=== PATIENT | male | born 1940 | race Caucasian/White ===

== ENCOUNTER 2017-10-28 06:44 | Day surgery (SDC) | payer OTHER, MEDICARE ==
[2017-10-27 10:41] VITALS: BMI 32.1
[2017-10-28 07:30] LABS: INR 1.12 (0.82-1.09); PROTHROMBIN TIME (PATIENT) 12.6 SEC (9.98-11.88)
[2017-10-28] MEDS ORDERED: MIDAZOLAM HCL 2 MG/2 ML SINGLE DOSE VIAL ONE (09:18)
[2017-10-28] MEDS ORDERED: BACITRACIN 15 GM TUBE TOPICAL OINTMENT ONE ×2 (09:37→14:13)
[2017-10-28] MEDS ORDERED: ceFAZolin SODIUM 1 GM VIAL ONE (09:38)
[2017-10-28] MEDS ORDERED: ceFAZolin SODIUM 1 GM VIAL IVPB ONE (09:42)
[2017-10-28] MEDS ORDERED: BACITRACIN 15 GM TUBE TOPICAL OINTMENT TP ONE (10:10)
[2017-10-28] MEDS ORDERED: oxyCODONE HCL 5 MG TABLET PO PRN (10:25)
--- NOTE | 2017-10-28 10:25 | OP ---
Operative Note - Note: Operative Date: 10/28/17 Pre-Operative Diagnosis: phimosis/balanitis Operation: circumcision Findings: phimotic,adherent foreskin Post-Operative Diagnosis: Same as Pre-op Surgeon: Norman Black Anesthesia: General, Spinal Specimens Removed: foreskin Estimated Blood Loss (mls): 2 Operative Report Dictated: Yes
--- NOTE | 2017-10-28 10:50 | OP ---
DATE OF OPERATION: 10/28/2017 PREOPERATIVE DIAGNOSES: Phimosis and balanitis. POSTOPERATIVE DIAGNOSES: Phimosis and balanitis. PROCEDURE: Circumcision. SURGEON: Norman Black MD INDICATION: Patient is a 77-year-old male with densely adherent, phimotic foreskin, cannot be retracted, who after reviewing treatment options, elected to undergo a circumcision, understood the risks of bleeding, infection, scar tissue, , potential need for additional procedures due to lack of appropriate healing. DESCRIPTION OF PROCEDURE: After informed consent obtained, patient was taken to the OR and placed supine on the operating table. He was given 2 g of Ancef and spinal anesthetic. The penis was then prepped and draped in standard surgical fashion. cannot be retracted. A dorsal slit had to be performed first in order to retract the penis, and then, a sleeve of phimotic foreskin was excised circumferentially and sent to Pathology for analysis. The foreskin was densely adherent to the glans, and this was detached as best as possible manually with a moist 4 x 4. At this point then, the distal skirt of foreskin at the armas was sewn back to the proximal foreskin tissue circumferentially until it was completely reapproximated using 3-0 chromic sutures. Bacitracin and 4 x 4 and Coban were then placed for a dry sterile dressing. Patient then awoken from anesthesia and transferred to recovery room in stable condition. There were no complications. Estimated blood loss was 2 mL. Ken [id number]
[2017-10-28] MEDS ORDERED: ONDANSETRON 4 MG/2 ML VIAL IVPUSH PRN (11:11)
[2017-10-28] MEDS ORDERED: LACTATED RINGERS SOLUTION 1,000 ML IV SCH (11:15)
[2017-10-28] MEDS ORDERED: oxyCODONE HCL 5 MG TABLET ONE (15:26)
--- NOTE | 2017-10-28 18:45 | PN ---
Teaching Attending Note Name of Resident: Terry Mendoza ATTENDING PHYSICIAN STATEMENT I saw and evaluated the patient. I reviewed the resident's note and discussed the case with the resident. I agree with the resident's findings and plan as documented with exceptions mentioned below. SUBJECTIVE: 77 yom with PMhx of afib on coumadin, CKD stage III, s/p PPM, COPD, PVD, ?DVT ( per charts but patient denies), GIB, HLD, HTN, Mitral stenosis/TR, SILVERIO admitted for elective cirmcucsion for phimosis, inability to retract foreskin. s/p surgery, had spinal anesthesia, had urban placement post op and plan for overnight admission to monitor for retention and hematuria. patient currently denies any pain, dyspnea, fevers, chills, nausea, vomiting, abdominal or urinary symptoms. 12 point ROS done, neg for exertional chest, dsypnea, PND, orthopnea, leg swelling, or concerns otherwise. Has been doing well before surgery. Was seen by his cardiology preoperatively and placed on lovenox bridging pre- operatively and coumadin was held. OBJECTIVE: Vital Signs Period Temp Pulse Resp BP Sys/Person Pulse Ox Last 24 Hr 97.7 F-98.2 F 68-83 15-18 102-131/57-76 95-98 Intake & Output 10/25/17 10/26/17 10/27/17 10/28/17 23:59 23:59 23:59 23:59 Intake Total 800 Output Total 1002 Balance -202 Weight 250 lb GENERAL: Awake, alert, and fully oriented, in no acute distress. HEAD: Normal with no signs of trauma. EYES: Pupils equal, round and reactive to light, extraocular movements intact, sclera anicteric, conjunctiva clear. No lid lag. EARS, NOSE, THROAT: Ears normal, nares patent, oropharynx clear without exudates. Moist mucous membranes. NECK: Normal range of motion, supple without lymphadenopathy, JVD, or masses. LUNGS: Breath sounds equal, clear to auscultation bilaterally. No wheezes, and no crackles. No accessory muscle use. HEART: S1S2 regular ABDOMEN: Soft, obese, nontender, not distended, normoactive bowel sounds, no guarding, no rebound, no masses. MUSCULOSKELETAL: Normal range of motion at all joints. No bony deformities or tenderness. No CVA tenderness. UPPER EXTREMITIES: 2+ pulses, warm, well-perfused. No cyanosis. No clubbing. No peripheral edema. LOWER EXTREMITIES: RLE skin hyperpigmentation with 1+ pedal non pitting edema ( chronic per patient) bilateral DP pulses present, well perfused NEUROLOGICAL: AAOx3, facial symmetry, moves all extremities freely, PSYCHIATRIC: Cooperative. Good eye contact. Appropriate mood and affect. SKIN: Warm, dry, normal turgor, no rashes or lesions noted, normal capillary refill. Home Medication List Medication Instructions Recorded Confirmed Type Atorvastatin Ca [Lipitor] 40 mg PO HS 10/27/17 10/28/17 History Enoxaparin Sodium [Lovenox] 100 mg SQ BID 10/27/17 10/28/17 History Finasteride 5 mg PO DAILY 10/27/17 10/28/17 History Liraglutide [Victoza -] 1.8 mg SQ DAILY@0700 10/27/17 10/28/17 History Nitrofurantoin Monohyd/M-Cryst 100 mg PO BID 10/27/17 10/28/17 History [Nitrofurantoin [place]-Mcr 100 mg] Olmesartan Medoxomil [Benicar (Nf)] 40 mg PO DAILY 10/27/17 10/28/17 History Omeprazole 40 mg PO DAILY 10/27/17 10/28/17 History Sitagliptin Phosphate [Januvia] 50 mg PO DAILY 10/27/17 10/28/17 History Torsemide 60 mg PO DAILY 10/27/17 10/28/17 History Warfarin Sodium [Coumadin] 5 mg PO ASDIR 10/27/17 10/28/17 History Warfarin Sodium [Coumadin] 10 mg PO ASDIR 10/27/17 10/28/17 History Active Medications Generic Name Dose Route Start Last Admin Trade Name Freq PRN Reason Stop Dose Admin Fentanyl 25 mcg 10/28/17 11:11 Sublimaze Injection - IVPUSH [id number] PRN PAIN-PACU ORDER X 4 DOSES ONLY Ondansetron HCl 4 mg 10/28/17 11:11 Zofran Injection IVPUSH Q6H PRN NAUSEA AND/OR VOMITING Oxycodone HCl 5 mg 10/28/17 10:25 Roxicodone - PO Q4H PRN PAIN-PACU Laboratory Results - last 24 hr 10/28/17 10/28/1710/28/18 07:03 07:03 07:48 PT with INR 12.60 H INR 1.12 Potassium 5.0 POC Glucometer 105 ASSESSMENT AND PLAN: 77 yom with PMHx of Afib on coumadin, HTN, HLD, s/p PPM, MS/TR, low normal EF, Anemia, BPH, COPD, CKD stage III, admitted for elective cirmcision, post operatively with urinary retention requring urban placement and admit to observation overnight for monitoring for hematuria. -Phimosis s/p circumcision -Afib on coumadin -S/p PPM -HTN -HLD -MS/TR, low normal EF -Anemia -BPH -CKD stage III -COPD Plan: discussed with Dr. Black, plan for strict bed rest overnight, urban, voiding trial in AM. D/c in 24 hours if no new concerns. As discussed, hold anti-coagulation ( coumadin or lovenox) tonight. resume diet. D/c IVF. Check CBC, Chem-7. resume ARB accordingly. (h/o CKD stage III and K 5 on admission). ISS, diabetic diet DVTPPX with SCDs Continue home PPI. Admit to observation overnight, d/c planning in 24 hours with no concerns. Plan discussed with patient in detail, all questions answered. Total admit time spent 45 min.
[2017-10-28] MEDS ORDERED: ACETAMINOPHEN 325 MG TABLET (FP) PO PRN ×2 (18:46→18:47)
--- NOTE | 2017-10-28 19:17 | HP ---
CC: I just had surgery PCP: Neal Simmons MD Mechanical Maintenance Instructor: Elio Live MD Urologist: Norman Black MD HPI: 77 yo M h/o COPD, a-fib on coumadin, systolic CHF, CAD s/p pacemaker, valvular disease s/p mitral valve replacement, and NIDDM underwent circumcision today in ambulatory surgery. Patient stated that his penile foreskin started to close after a tick bite a few years ago. He's been unable to pull the foreskin back which prompted him to see Dr. Black. Patient is s/p circumcision with spinal anesthesia post op day 0 with 2 ml of blood loss during procedure. He has a urban catheter in place. Denies fever, chills, chest pain, shortness of breath, headache, weakness, nausea or vomiting. PMH: kidney stone, COPD, a-fib, CHF, CAD s/p pacemaker, mitral valve replacement , NIDDM PSH: Valve repair and replacement, ? perf colon-cauterized Social History: former smoker; current alcohol user (2 shots/day) Family History: Non-contributory Allergy: NKDA Home Meds: Atorvastatin Ca [Lipitor] 40 mg PO HS 10/27/17 Enoxaparin Sodium [Lovenox] 100 mg SQ BID 10/27/17 Finasteride 5 mg PO DAILY 10/27/17 Liraglutide [Victoza -] 1.8 mg SQ DAILY@0700 10/27/17 Nitrofurantoin Monohyd/M-Cryst [Nitrofurantoin Moca-Mcr 100 mg] 100 mg PO BID Olmesartan Medoxomil [Benicar (Nf)] 40 mg PO DAILY 10/27/17 Omeprazole 40 mg PO DAILY 10/27/17 Sitagliptin Phosphate [Januvia] 50 mg PO DAILY 10/27/17 Torsemide 60 mg PO DAILY 10/27/17 Warfarin Sodium [Coumadin] 5 mg PO ASDIR 10/27/17 Warfarin Sodium [Coumadin] 10 mg PO ASDIR 10/27/17 ROS: Constitutional: no fever or loss of appetite, no weakness or weight change HEENT: No headache, nasal congestion, sore throat, ear pain, vision change Skin: No rash or lesion Cardiovascular: No chest pain Pulmonary: No dyspne, no non-productive cough or clear sputum Endocrine: No polyuria, polydipsia, skin /hair changes, heat/cold intolerance. GI: No active abd pain, nausea or vomiting : No frequency, urgency, dysuria, or hematuria. MSK: No joint or muscle pain Psychology: No depression, anxiety, or insomnia. Physical Examination Last Vital Signs Temp Pulse Resp BP Pulse Ox 97.6 F 83 18 115/60 98 10/28/17 18:40 03 18:40 03 18:40 10/28/17 18:40 10/28/17 18:40 General: not any pulmonary or cardiac distress, AAO x 3. appropriate to stated age. Eyes: b/l cataract with artificial lens Neck: Supple with no LAD or masses, no bruit Lymph Nodes: No cervical or inguinal LAD. Cardiovascular: RRR, S1 and S2 normal, no m/r/r Lungs: CTAB Abdomen: Obese, soft, non-distended, normoactive bowel sounds. No tenderness even upon deep palpation, no guarding/rebound Extremeties: b/l LE chronic venous stasis with +2 pitting edema; b/l peripheral pulses present; diffuse, non-purulent erythema with no-healing spotty wounds in LLE, compression stocking in place : urban catheter in place, clear urine (300cc) CMP Potassium 5.0 mmol/L (3.5-5.1) 10/28/17 07:03 A/P: 77 yo M admitted to med-surg observation s/p circumcision under spinal anesthesia. Urinary retention - s/p circumcision with spinal anesthesia post-op day 0 - Maintain urban catheter - Voiding trial tomorrow - Strict bedrest - Hold coumadin and lovenox - Cont. finasteride - Urology onboard Vavular heart disease, s/p mitral valve replacement and CAD s/p pacemaker - Hold anti-coagulation Systolic CHF - Stable - Low normal EF with mod MS, mild to mod MR - Cont. torsemide a-fib - Rate and rythm controlled - Hold anti-coagulation CKD, stage III - Baseline Cr ~1.9 NIDDM - BGM and sliding scale HTN - Hold benicar due to hyperkalemia - Will resume accordingly based on repeat BMP HLD - Cont. lipitor FEN - Stay off fluids - Monitor K+ - Na+ controlled and DM diet Prophylaxis - DVT: SCDs - GI: on home PPI Dispo - Admit to med-surg observation - Anticipate to discharge tomorrow Terry Mendoza Medicine PGY2 Pager: [phone] Visit type - Emergency Visit Emergency Visit: No - New Patient This patient is new to me today: Yes Date on this admission: 10/28/17 - Critical Care Critical Care patient: No Hospitalist Screening - Colonoscopy Questionnaire Colonoscopy Questionnaire: Colonoscopy Questionnaire - Patient: 50 - 75 years old and never had a screening colonoscopy: Unknown History of colon or rectal polyps, or CA: Unknown History of IBD, Crohn's disease or UC: Unknown History of abdominal radiation therapy as a child: Unknown - Relative: 1 with colon or rectal CA, or polyps at age 60 or younger: Unknown Colon or rectal CA diagnosed at age 45 or younger: Unknown Multiple relatives with colon or rectal CA: Unknown - Outcome: Screening Result: Negative Screen
[2017-10-28] MEDS: TORSEMIDE 20 MG TABLET (FP) PO SCH (19:32)
[2017-10-28] MEDS: PANTOPRAZOLE 40 MG TABLET (FP) PO SCH (19:33)
[2017-10-28] MEDS: FINASTERIDE 5 MG TABLET (FP) PO SCH (19:33)
[2017-10-28 20:27] LABS: ANION GAP 11 (8-16); BLOOD UREA NITROGEN 69 mg/dL (7-18); CALCIUM 8.2 mg/dL (8.5-10.1); CHLORIDE 105 mmol/L (98-107); CO2 24 mmol/L (21-32); CREATININE 2.1 mg/dL (0.7-1.3); GLUCOSE,RANDOM 130 mg/dL (74-106); POTASSIUM 4.1 mmol/L (3.5-5.1); SODIUM 140 mmol/L (136-145)
[2017-10-28 20:30] LABS: HEMATOCRIT 29.2 % (35.4-49); HEMOGLOBIN 9.5 GM/dL (11.7-16.9); MCH 27.3 pg (25.7-33.7); MCHC 32.4 g/dl (32.0-35.9); MEAN PLT VOLUME 8.2 fl (7.5-11.1); PLATELET COUNT 185 K/MM3 (134-434); RBC 3.47 M/mm3 (4.00-5.60); RDW 17.8 % (11.9-15.9)
[2017-10-28] MEDS: INSULIN SLIDING SCALE (NOVOLOG) 1 VIAL SQ SCH (21:40)
[2017-10-28] MEDS ORDERED: ATORVASTATIN CA 40 MG TABLET (FP) PO SCH (22:00)
[2017-10-28] MEDS: oxyCODONE HCL 5 MG TABLET PO PRN (22:03)
[2017-10-29] MEDS: oxyCODONE HCL 5 MG TABLET PO PRN ×3 (01:55→10:59)
[2017-10-29] MEDS: INSULIN SLIDING SCALE (NOVOLOG) 1 VIAL SQ SCH ×2 (06:02→11:12)
[2017-10-29 07:33] LABS: HEMATOCRIT 28.2 % (35.4-49); HEMOGLOBIN 9.1 GM/dL (11.7-16.9); MCH 27.1 pg (25.7-33.7); MCHC 32.1 g/dl (32.0-35.9); MEAN CELL VOLUME 84.4 fl (80-96); PLATELET COUNT 183 K/MM3 (134-434); RBC 3.34 M/mm3 (4.00-5.60); RDW 17.7 % (11.9-15.9); WHITE BLOOD COUNT 8.9 K/mm3 (4.0-10.0)
[2017-10-29] MEDS ORDERED: BACITRACIN 15 GM TUBE TOPICAL OINTMENT TP ONE (07:45)
--- NOTE | 2017-10-29 07:54 | PN ---
Progress Note (short form) - Note Progress Note: no significant bleeding overnight may d/c home with urban to leg bag no resumption of anticoagulation f/u office next week
[2017-10-29 08:12] LABS: CHLORIDE 100 mmol/L (98-107); POTASSIUM 4.3 mmol/L (3.5-5.1); SODIUM 137 mmol/L (136-145)
[2017-10-29 08:19] LABS: ANION GAP 13 (8-16); BLOOD UREA NITROGEN 65 mg/dL (7-18); CALCIUM 8.8 mg/dL (8.5-10.1); CO2 24 mmol/L (21-32); CREATININE 1.9 mg/dL (0.7-1.3); GLUCOSE,RANDOM 103 mg/dL (74-106)
[2017-10-29 09:11] VITALS: BP 106/70; PULSE 76; TEMP 98.7
[2017-10-29] MEDS: PANTOPRAZOLE 40 MG TABLET (FP) PO SCH (09:44)
[2017-10-29] MEDS: FINASTERIDE 5 MG TABLET (FP) PO SCH (09:45)
[2017-10-29] MEDS: TORSEMIDE 20 MG TABLET (FP) PO SCH (09:45)
--- NOTE | 2017-10-29 14:39 | PATH ---
Surgical Pathology Report Patient Name: ALBA GARRIDO [facility]. Rec. #: [id number] /Age/Gender: 1940 (Age: 77) / M Account: [id number] Location: [facility] SURGICAL Taken: 10/28/2017 Received: 10/28/2017 Reported: 10/29/2017 Physicians: Norman Black M.D. 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 NO DYSPLASIA IDENTIFIED. Electronically Signed Elio Coleman M.D. Gross Description Received in formalin labeled "foreskin," are 2 scott, irregular portions of wrinkled skin, consistent with foreskin. The specimens measure 2.0 x 0.9 x 0.3 cm and 4.0 x 3.5 x 0.5 cm. Television Mechanic sections are submitted in one cassette. /10/28/2017 saudi10/28/2017
== END 2017-10-29 12:00 | disposition home or self-care (01) ==
LOC: JASU-SURG 06:44 → J6S 18:15 → JASU-SURG 10-29 12:00
PROVIDERS: ATTEND Urology
PROC: 0VTTXZZ Resection of Prepuce, External Approach (ICD-10-PCS; principal; 2017-10-28 09:00)
DX: N47.1 Phimosis (principal); N48.1 Balanitis; I48.91 Unspecified atrial fibrillation; I50.20 Unspecified systolic (congestive) heart failure; J44.9 Chronic obstructive pulmonary disease, unspecified; Z79.01 Long term (current) use of anticoagulants; I25.10 Atherosclerotic heart disease of native coronary artery without angina pectoris; Z95.0 Presence of cardiac pacemaker; Z95.2 Presence of prosthetic heart valve; E11.9 Type 2 diabetes mellitus without complications; Z87.891 Personal history of nicotine dependence; Z87.442 Personal history of urinary calculi
CPT/HCPCS: 36415; 80048; 82962; 84132; 85027; 85610; 88304-TC